=== PATIENT | male | born 1980 | race Caucasian/White ===

== ENCOUNTER 2016-11-20 18:14 | Observation (INO) | payer SELFPAY ==
[~2016-11-20] VITALS: Ht 172.7 cm; Wt 76.5 kg
[2016-11-20 18:53] LABS: HEMOGLOBIN 14.9 g/dL (13.7-18.0)
[2016-11-20 18:57] LABS: DAU SCREEN DISCLAIMER
[2016-11-20 19:04] LABS: BLOOD UREA NITROGEN 20 mg/dL (7-18)
[2016-11-20 19:05] LABS: ACETAMINOPHEN < 2 mcg/mL (10-30)
[2016-11-20] MEDS ORDERED: DOCUSATE 100 MG CAPSULE PO PRN (20:00)
[2016-11-21] MEDS: SERTRALINE 100MG TABLET PO SCH (09:00)
[2016-11-21] MEDS ORDERED: NICOTINE 21 MG/24 HR PATCH.TD24 ONE (10:06)
[2016-11-21] MEDS: NICOTINE 21 MG/24 HR PATCH.TD24 TD SCH (10:08)
[2016-11-21] MEDS ORDERED: LORazepam 1MG TABLET ONE (15:28)
[2016-11-21] MEDS: ENOXAPARIN 40 MG/0.4 ML SQ SCH (20:00)
[2016-11-21 23:58] VITALS: BP 143/100
[2016-11-22] MEDS: NICOTINE 21 MG/24 HR PATCH.TD24 TD SCH ×2 (00:17→20:33)
[2016-11-22] MEDS: TEMAZEPAM 15 MG CAPSULE PO PRN ×2 (00:37→20:37)
[2016-11-22] MEDS: SERTRALINE 100MG TABLET PO SCH (07:50)
[2016-11-22 08:50] VITALS: BP 142/92
[2016-11-22 19:43] VITALS: BP 124/76
[2016-11-23] MEDS: TEMAZEPAM 15 MG CAPSULE PO PRN ×2 (03:51→21:59)
[2016-11-23] MEDS: SERTRALINE 100MG TABLET PO SCH (08:20)
[2016-11-23 08:37] VITALS: BP 126/82
[2016-11-23] MEDS ORDERED: PRAZOSIN 1 MG CAPSULE PO ONE (13:00)
[2016-11-23] MEDS: NICOTINE 21 MG/24 HR PATCH.TD24 TD SCH (17:54)
[2016-11-23 19:27] VITALS: BP 124/76
[2016-11-23] MEDS ORDERED: PRAZOSIN 1 MG CAPSULE PO SCH (21:00)
== END 2016-11-23 22:30 ==
LOC: ED 19:09 → EDIP 19:52 → 3E 11-21 23:55
DX: R45.851 Suicidal ideations (principal); F32.9 Major depressive disorder, single episode, unspecified; F15.10 Other stimulant abuse, uncomplicated; F11.20 Opioid dependence, uncomplicated; D72.829 Elevated white blood cell count, unspecified; F17.210 Nicotine dependence, cigarettes, uncomplicated; F12.90 Cannabis use, unspecified, uncomplicated; F43.10 Post-traumatic stress disorder, unspecified; B19.20 Unspecified viral hepatitis C without hepatic coma; F29 Unspecified psychosis not due to a substance or known physiological condition; F41.9 Anxiety disorder, unspecified
CPT/HCPCS: 36415; 80048; 80307; 80329; 82040; 85025; 99285; G0378; G0480

== ENCOUNTER 2016-12-01 17:31 | Emergency (ER) | payer OTHER ==
[~2016-12-01] VITALS: Ht 172.7 cm; Wt 78.0 kg
[2016-12-01 17:48] VITALS: BP 148/101
[2016-12-01] MEDS ORDERED: SERT50TA PO (17:58)
[2016-12-01] MEDS ORDERED: LORazepam 1MG TABLET PO ONE (18:00)
[2016-12-01] MEDS ORDERED: LORazepam 1MG TABLET ONE (18:27)
== END 2016-12-01 19:02 | disposition home or self-care (01) ==
LOC: ED 18:30
DX: T43.621A Poisoning by amphetamines, accidental (unintentional), initial encounter (principal); F17.200 Nicotine dependence, unspecified, uncomplicated; Y92.9 Unspecified place or not applicable
CPT/HCPCS: 93005; 99283

== ENCOUNTER 2017-10-13 21:36 | Emergency (ER) | payer OTHER ==
[~2017-10-13] VITALS: Ht 170.2 cm; Wt 82.0 kg
[~2017-10-13 21:36] MED LIST: SERT50TA PO
[2017-10-13 21:41] VITALS: BP 132/88
[2017-10-13] MEDS ORDERED: VALP250C59 PO (21:58)
[2017-10-13 22:19] LABS: BASOPHILS # (AUTO) 0.06 x10^3/uL (0-0.1); BASOPHILS % (AUTO) 0 % (0-1); EOSINOPHILS # (AUTO) 0.13 x10^3/uL (0-0.4); EOSINOPHILS % (AUTO) 1 % (1-7); LYMPHOCYTES # (AUTO) 3.34 x10^3/uL (1-3.4); LYMPHOCYTES % (AUTO) 23 % (22-44); MD NO; MEAN CORPUSCULAR HEMOGLOBIN 31.8 pg (27.5-34.5); MEAN CORPUSCULAR HGB CONC 34.4 g/dL (33.2-36.2); MEAN CORPUSCULAR VOLUME 92.4 fL (81-97); MEAN PLATELET VOLUME 8.8 fL (7.4-10.4); MONOCYTES # (AUTO) 1.14 x10^3/uL (0.2-0.8); MONOCYTES % (AUTO) 8 % (2-9); NEUTROPHILS # (AUTO) 9.83 x10^3/uL (1.8-6.8); NEUTROPHILS % (AUTO) 68 % (42-75); PLATELET COUNT 343 x10^3/uL (130-400); RED BLOOD COUNT 4.92 x10^6/uL (4.38-5.82); RED CELL DISTRIBUTION WIDTH 12.3 % (9.4-14.8)
[2017-10-13 22:28] LABS: AMPHETAMINE SCREEN, URINE Positive (Negative); BARBITURATE SCREEN, URINE Negative (Negative); BENZODIAZEPINE SCREEN, URINE Negative (Negative); CANNABINOID SCREEN, URINE Positive (Negative); COCAINE SCREEN, URINE Negative (Negative); METHADONE SCREEN, URINE Negative (Negative); OPIATE SCREEN, URINE Negative (Negative)
[2017-10-13 22:31] LABS: ALANINE AMINOTRANSFERASE 23 U/L (12-78); ALBUMIN 4.2 g/dL (3.4-5.0); ANION GAP 12 mmol/L (5-15); CALCIUM 8.9 mg/dL (8.5-10.1); CHLORIDE 103 mmol/L (98-107); SALICYLATE LEVEL 3.5 mg/dL (2.8-20.0)
[2017-10-13 22:33] LABS: ALKALINE PHOSPHATASE 91 U/L (45-117); BILIRUBIN,TOTAL 0.8 mg/dL (0.2-1.0); CREATININE 0.97 mg/dL (0.7-1.3); TOTAL PROTEIN 8.1 g/dL (6.4-8.2)
[2017-10-13 22:35] LABS: ACETAMINOPHEN < 2 mcg/mL (10-30)
== END 2017-10-14 00:39 | disposition home or self-care (01) ==
LOC: ED 23:29
DX: F15.150 Other stimulant abuse with stimulant-induced psychotic disorder with delusions (principal); F32.1 Major depressive disorder, single episode, moderate; F15.129 Other stimulant abuse with intoxication, unspecified; F43.10 Post-traumatic stress disorder, unspecified; F20.9 Schizophrenia, unspecified; Z60.9 Problem related to social environment, unspecified; Z02.89 Encounter for other administrative examinations; Z72.9 Problem related to lifestyle, unspecified; Z91.14 Patient's other noncompliance with medication regimen
CPT/HCPCS: 36415; 80053; 80307; 80329; 85025; 99284; G0480

== ENCOUNTER 2019-08-14 21:39 | Emergency (ER) | payer OTHER ==
[~2019-08-14 21:39] MED LIST changes: +VALP250C59 PO
--- NOTE | 2019-08-14 21:53 | NUR ---
PT CAME IN WITH HOMICIDAL THOUGHTS. "I JUST CANT DEAL WITH MY LIFE ANYMORE. I WANT TO KILL SOMEONE. I DO WISH TO BE . I DONT HAVE A PLAN". PT BELONGINGS ARE SECURED IN LOCKER IN 2 BAGS THAT ARE LABELED.
--- NOTE | 2019-08-14 21:55 | NUR ---
PT STATES HE CURRENTLY ISNT HAVING SI THOUGHTS. BUT HE WISHES TO BE .
--- NOTE | 2019-08-14 22:06 | NUR ---
REPORT GIVEN TO JASWINDER MARTINO
[2019-08-14 22:08] LABS: BASOPHILS # (AUTO) 0.04 x10^3/uL (0-0.1); BASOPHILS % (AUTO) 0 % (0-1); EOSINOPHILS # (AUTO) 0.22 x10^3/uL (0-0.4); EOSINOPHILS % (AUTO) 2 % (1-7); LYMPHOCYTES # (AUTO) 3.99 x10^3/uL (1-3.4); LYMPHOCYTES % (AUTO) 39 % (22-44); MD NO; MEAN CORPUSCULAR HEMOGLOBIN 33.1 pg (27.5-34.5); MEAN CORPUSCULAR HGB CONC 34.6 g/dL (33.2-36.2); MEAN CORPUSCULAR VOLUME 95.8 fL (81-97); MEAN PLATELET VOLUME 8.7 fL (7.4-10.4); MONOCYTES # (AUTO) 0.83 x10^3/uL (0.2-0.8); MONOCYTES % (AUTO) 8 % (2-9); NEUTROPHILS # (AUTO) 5.24 x10^3/uL (1.8-6.8); NEUTROPHILS % (AUTO) 51 % (42-75); PLATELET COUNT 292 x10^3/uL (130-400); RED BLOOD COUNT 5.04 x10^6/uL (4.38-5.82); RED CELL DISTRIBUTION WIDTH 12.7 % (9.4-14.8)
--- NOTE | 2019-08-14 22:08 | NUR ---
REPORT FROM DOROTHY, PLAN OF CARE DISCUSSED. WARM BLANKET GIVEN TO PATIENT, PT VERBALIZED NO NEEDS AT THIS TIME
[2019-08-14 22:17] LABS: ALBUMIN 4.3 g/dL (3.4-5.0); ANION GAP 8 mmol/L (5-15); CALCIUM 8.8 mg/dL (8.5-10.1); CHLORIDE 108 mmol/L (98-107); SALICYLATE LEVEL 3.8 mg/dL (2.8-20.0)
[2019-08-14 22:20] LABS: ALANINE AMINOTRANSFERASE 68 U/L (12-78); ALKALINE PHOSPHATASE 83 U/L (45-117); BILIRUBIN,TOTAL 0.5 mg/dL (0.2-1.0); CREATININE 0.95 mg/dL (0.7-1.3); TOTAL PROTEIN 8.3 g/dL (6.4-8.2)
[2019-08-14 22:28] LABS: AMPHETAMINE SCREEN, URINE Negative (Negative); BARBITURATE SCREEN, URINE Negative (Negative); BENZODIAZEPINE SCREEN, URINE Negative (Negative); CANNABINOID SCREEN, URINE Positive (Negative); COCAINE SCREEN, URINE Negative (Negative); METHADONE SCREEN, URINE Negative (Negative); OPIATE SCREEN, URINE Negative (Negative)
--- NOTE | 2019-08-14 22:54 | NUR ---
RECEIVED REPORT FROM GUNNER SAN. ASSUMING CARE AT THIS TIME.
--- NOTE | 2019-08-14 22:54 | NUR ---
REPORT TO MILDRED SAN, PLAN OF CARE DISCUSSED.
[2019-08-14] MEDS ORDERED: NICOTINE 21 MG/24 HR PATCH.TD24 ONE (22:59)
[2019-08-14] MEDS ORDERED: NICOTINE 21 MG/24 HR PATCH.TD24 TD ONE (23:00)
--- NOTE | 2019-08-14 23:02 | NUR ---
RN POSTPARTUM PER MAR.
--- NOTE | 2019-08-14 23:02 | NUR ---
PT RESTING COMFORTABLY ON GURNEY. BOBBY. PT IN DIRECT SIGHT OF SITTER.
--- NOTE | 2019-08-15 00:10 | NUR ---
RESTING QUIETLY, SITTER OUTSIDE ROOM FOR PT SAFETY.
--- NOTE | 2019-08-15 01:35 | NUR ---
HOSPITAL BED ORDERED. PT RESTING CALMLY, NAD. SITTER AT DOORWAY FOR CONTINOUS MONITORING
--- NOTE | 2019-08-15 02:38 | NUR ---
PT RESTING CALMLY, NAD, REPOSITIONED SELF ON GURNEY, EQUAL CHEST RISE /FALL OBSERVED. SITTER AT DOORWAY FOR CONTINOUS MONITORING
--- NOTE | 2019-08-15 02:59 | NUR ---
PT STATED " I NEED TO THROW UP", PROVIDE DPT WITH EMESIS BAG, PT SITTING UP ON GURNEY, NOTED PT WITH DRY HEAVES. WILL UPDATE ERP THAT PT REQUESTING MEDICATION FOR NAUSEA
[2019-08-15] MEDS ORDERED: ONDANSETRON ODT 8 MG ONE (03:03)
--- NOTE | 2019-08-15 03:05 | NUR ---
PT MEDICATED PER MAR
--- NOTE | 2019-08-15 03:20 | NUR ---
PROVIDED PT WITH HOSPITAL BED, PT NOW RESTING IN BED CALMLY, NAD, DENIES FURTHER NEEDS AT THIS TIEM, ROOM REMAINS SECURED, SITTER AT DOORWAY FOR CONTINOUS MONITORING
[2019-08-15] MEDS ORDERED: ONDANSETRON ODT 8 MG PO ONE (03:30)
--- NOTE | 2019-08-15 03:56 | NUR ---
BREAKFAST TRAY ORDERED.
--- NOTE | 2019-08-15 04:02 | NUR ---
ERP UPDATED PT'S BREATHALYZER-0.083
--- NOTE | 2019-08-15 04:25 | NUR ---
PT RESTING CALMLY, NAD, REPOSITIONED SELF ON GURNEY, EQUAL CHEST RISE /FALL OBSERVED. SITTER AT DOORWAY FOR CONTINOUS MONITORING
--- NOTE | 2019-08-15 04:37 | NUR ---
referral faxed to the [facility], and [facility].
--- NOTE | 2019-08-15 05:06 | NUR ---
MELA FROM [facility] ON TELEPHONE, STATED THAT THEY ARE NOT CONTRACTED WITH [facility] AND WANTED TO KNOW IF PT COULD SELF PAY. DISCUSSED WITH PT AND PT STATED THAT HE IS NOT ABLE TO SELF PAY, MELA UPDATED THAT PT IS NOT ABLE TO SELF PAY
--- NOTE | 2019-08-15 05:10 | NUR ---
Salma from [facility] called and stated that they are not contracted with the pt insurance. They stated that pt could do self pay of $4000 up front and $800 per day. Pt declined.
--- NOTE | 2019-08-15 05:20 | NUR ---
PT UP TO USE PHONE TO CALL FAMILY TO GO CHECK ON HIS DOG, NABIL REMAINS AT HIS SIDE
--- NOTE | 2019-08-15 05:30 | NUR ---
PT RESTING IN BED, DENIES NEEDS, NAD, SITTER AT DOORWAY FOR CONTINOUS MONITORING
--- NOTE | 2019-08-15 05:51 | NUR ---
PT REQUESTING MEDICATION FOR ANXIETY, PT PACING IN ROOM. ERP UPDATED AND WILL PLACE MEDICATION ORDER
[2019-08-15] MEDS ORDERED: LORazepam 1MG TABLET ONE (05:55)
--- NOTE | 2019-08-15 05:58 | NUR ---
PT MEDICATED PER MAR
[2019-08-15] MEDS ORDERED: LORazepam 1MG TABLET PO ONE (06:00)
--- NOTE | 2019-08-15 06:38 | NUR ---
PT RESTING IN BED, STATED " I FEEL ALOT BETTER NOW", DENIES NEEDS, NAD, SITTER AT DOORWAY FOR CONTINOUS MONITORING
--- NOTE | 2019-08-15 07:09 | NUR ---
report given to valeria lugo
--- NOTE | 2019-08-15 07:29 | NUR ---
REPORT FROM NOC RN RECIEVED, PT RESTING ON HOSPITAL BED, VISIBLE CHEST RISE AND FALL OBSERVED . SI PRECAUTIONS OBSERVED. NAD NOTED
--- NOTE | 2019-08-15 08:31 | NUR ---
PT GIVEN MEAL TRAY. ASSISTED TO PHONE TO MAKE CALL FOR FRIEND TO CHECK ON HIS DOG. PT BACK TO RM AT THIS TIME
[2019-08-15 09:04] VITALS: BP 155/99
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
--- NOTE | 2019-08-15 09:16 | NUR ---
REPORT RECEIVED FROM JASWINDER PORTER, THIS RN ASSUMING CARE.
--- NOTE | 2019-08-15 09:20 | NUR ---
SOFIA SHI FROM PHARMACY, NOT IN ED OMNICE.
[2019-08-15] MEDS ORDERED: CHLORDIAZEPOXIDE 25 MG CAPSULE PO STA (09:23)
--- NOTE | 2019-08-15 10:00 | NUR ---
pt medicated per emar, tolerated well. mother at bedside per pt request. pt a&o, resps even and unlabored. room remains secure. sitter monitoring from hallway for safety.
--- NOTE | 2019-08-15 10:43 | NUR ---
PT SLEEPING ON HOSPITAL BED, RESPS EVEN AND UNLABORED, NADN. SITTER MONITORING FROM HALLWAY FOR SAFETY.
--- NOTE | 2019-08-15 10:50 | NUR ---
report given to JASWINDER Borjas.
--- NOTE | 2019-08-15 11:03 | NUR ---
RECEIVED BEDSIDE REPORT FROM FERNANDA RN, ASSUMING CARE OF PT AT THIS TIME. PT RESTING IN BED WATCHING TV, BREAKFAST AT BEDSIDE. SITTER IN [place]IC[place] FOR CONTINUOUS MONITORING.
--- NOTE | 2019-08-15 12:28 | NUR ---
LUNCH TRAY DELIVERED TO PT. PT DIDNT EAT MUCH OF BREAKFAST TRAY, STS NOT HUNGRY BUT WILL PICK AT LUNCH. NO NEEDS AT THIS TIME. AWAITING TO TALK TO VENDING MACHINE REPAIRER AGAIN FOR POSSIBLE REEVALUATION. SITTER IN [place]IC[place] FOR CONTINUOUS MONITORING. WILL CONTINUE TO MONITOR
--- NOTE | 2019-08-15 12:36 | NUR ---
CHON TORO ON UNIT MAKING ROUNDS, CONFIRMED THAT PT WAS ON HER SCHEDULE TO SEE.
--- NOTE | 2019-08-15 13:57 | NUR ---
PT BEGINING TO GET AGGITATED, PACING IN ROOM SAYING "I JUST WANT TO FUCKING LEAVE." PATCH FINISHER NOTIFIED, MEDS REQUESTED. WOULD LIKE TO SPEAK WITH PT BEFORE ORDERING MEDS TO CALM DOWN. AWAITING ORDERS. SITTER IN ALICIA FOR CONTINUOUS MONITORING
--- NOTE | 2019-08-15 14:28 | NUR ---
AFTER CONVERSATION WITH WELDING TESTER, PT TO BE DCd HOME WITH OUTPT F/U
--- NOTE | 2019-08-15 15:09 | NUR ---
BREAK RN NOTE: PT GIVEN COFFEE WITH SUGAR. PT A&O, RESPS EVEN AND UNLABORED. PT DENIES ANY OTHER NEEDS. PT UPDATED WITH POC. NADN AT THIS TIME. REPORT GIVEN BACK TO PRIMARY RN LUIS A CARBAJAL.
--- NOTE | 2019-08-15 16:14 | NUR ---
pt mother at bedside. 2 bags of belongings given to pt. Ready for DC home
== END 2019-08-15 16:16 | disposition home or self-care (01) ==
LOC: ED 22:02
DX: R45.851 Suicidal ideations (principal); F17.200 Nicotine dependence, unspecified, uncomplicated; F32.9 Major depressive disorder, single episode, unspecified; F29 Unspecified psychosis not due to a substance or known physiological condition
CPT/HCPCS: 36415; 80053; 80307; 85025; 99284; Q0162